=== PATIENT | female | born 1980 | race Caucasian/White ===

== ENCOUNTER 2022-08-13 08:30 | Inpatient (IN) | payer OTHER ==
[2022-08-13] MEDS ORDERED: SODIUM CHLORIDE 0.9% 1,000 ML IV STA (08:32)
--- NOTE | 2022-08-13 08:42 | ED ---
General Adult HPI - General Stated complaint: Seizure Time Seen by Provider: 08/13/22 08:32 Source: family, RN notes reviewed, old records reviewed Limitations: altered mental status - History of Present Illness Initial comments: 41-year-old female who had been in the emergency department waiting with her daughter. While waiting she developed fall on tonic-clonic seizure which was witnessed by nursing initially and by myself. She had urinary incontinence. She did fall but staff did not indicate head trauma. She has a history of seizure disorder and daughter believes that she uses medical marijuana but does not believe she is currently on any medications. History is obtained from the daughter at the onset of seizure. - Related Data Home Medications Medication Instructions Recorded Confirmed No Known Home Medications 08/13/22 08/13/22 Allergies Allergy/AdvReac Type Severity Reaction Status Date / Time diazepam [From Valium] AdvReac seizure Verified 08/13/22 09:51 Review of Systems ROS Statement: Those systems with pertinent positive or pertinent negative responses have been documented in the HPI. ROS Other: All systems not noted in ROS Statement are negative. General Exam General appearance: obtunded, in distress Head exam: Present: atraumatic, normocephalic Eye exam: Present: normal appearance, PERRL Neck exam: Absent: tenderness Respiratory exam: Present: other (Tachypneic with snoring respirations) Cardiovascular Exam: Present: normal rhythm, tachycardia GI/Abdominal exam: Present: soft. Absent: distended, tenderness, guarding Extremities exam: Present: normal inspection, normal capillary refill Neurological exam: Present: other (Localizes to pain). Absent: alert, oriented X3 Skin exam: Present: warm, dry, intact, normal color Course Vital Signs 08/13/22 08/13/22 08:32 09:10 Temperature 97.4 F L Pulse Rate 125 H 94 Respiratory 18 18 Rate Blood Pressure 104/83 106/81 O2 Sat by Pulse 96 100 Oximetry EKG Findings - EKG Results: EKG: interpreted by DARLENE (Sinus rhythm rate of 97, AZ interval 136, QRS duration 76, QTC 403, no ST segment changes, question right ventricular conduction delay) Medical Decision Making - Medical Decision Making Was pt. sent in by a medical professional or institution (, PA, REVOLVING INVENTORY CLERK, urgent care, hospital, or longterm...) When possible be specific @ -No Did you speak to anyone other than the patient for history (EMS, parent, family, police, friend...)? What history was obtained from this source @ -History is obtained from the daughter who is a current patient holding the emergency department initial history was not able to be obtained from the patient secondary to seizure activity and postictal state Did you review nursing and triage notes (agree or disagree)? Why? @ -I reviewed and agree with nursing and triage notes Were old charts reviewed (outside hosp., previous admission, EMS record, old EKG, old radiological studies, urgent care reports/EKG's, longterm records)? Report findings @ -No old charts were reviewed Differential Diagnosis (chest pain, altered mental status, abdominal pain women, abdominal pain men, vaginal bleeding, weakness, fever, dyspnea, syncope, headache, dizziness, GI bleed, back pain, seizure, CVA, palpatations, mental health, musculoskeletal)? @ -Differential Seizure: Recurrent seizure disorder, febrile seizure, alcohol withdrawal, stimulants, meningitis, encephalitis, intercranial hemorrhage, intracranial tumor, stroke, eclampsia, thyrotoxicosis, hypocalcemia, hyponatremia, hypernatremia, hy pomagnesemia, psychogenic, this is not meant to be an all-inclusive list. EKG interpreted by me (3pts min.). @ -As above X-rays interpreted by me (1pt min.). @ -None done CT interpreted by me (1pt min.). @ -CT was interpreted by myself and I agree with the radiologist assessment no acute intracranial abnormality, no fracture or subluxation the cervical spine U/S interpreted by me (1pt. min.). @ -None done What testing was considered but not performed or refused? (CT, X-rays, U/S, labs)? Why? @ -None What meds were considered but not given or refused? Why? @ -I considered antiepileptics however the patient is currently not on any and does not wish to start oral medications she is currently taking cannabis only. Did you discuss the management of the patient with other professionals (professionals i.e. , PA, REVOLVING INVENTORY CLERK, lab, RT, psych nurse, social media sr strategy manager, roastmaster, teacher, armed custom protection officer, case folder)? Give summary @ -No Was smoking cessation discussed for >3mins.? @ -No Was critical care preformed (if so, how long)? @ -Critical care was performed for approximately 35 minutes during the initial seizure and postictal phase Were there social determinants of health that impacted care today? How? (Homelessness, low income, unemployed, alcoholism, drug addiction, transportation, low edu. Level, literacy, decrease access to med. care, senior living, rehab)? @ -U asked the patient currently cannot drive she lives a proximally 45 minutes from this institution and is staying in the emergency department with her daughter who is currently also patient. Was there de-escalation of care discussed even if they declined (Discuss DNR or withdrawal of care, Hospice)? DNR status @ -No What co-morbidities impacted this encounter? (DM, HTN, Smoking, COPD, CAD, Cancer, CVA, ARF, Chemo, Hep., AIDS, mental health diagnosis, sleep apnea, morbid obesity)? @ -None Was patient admitted / discharged? Hospital course, mention meds given and route, prescriptions, significant lab abnormalities, going to OR and other pertinent info. @ -Patient was monitored during her initial seizure. She had approximately 1 minute of full seizure activity with urinary incontinence. She was placed immediately on a monitor and taken to the resuscitation room. She did not require benzodiazepines her antiepileptics. After approximately 20 minutes she regained normal consciousness and normal neurologic function with a normal neuro exam. I did perform head CT both for seizure and for the possibility of head trauma this was negative. Her laboratory testing is consistent with seizure activity mild leukocytosis and a CO2 of 12 consistent with acidosis from seizure activity. Patient monitored closely in the emergency department returns to baseline she does not want to be admitted she states she takes cannabis and has several seizures per month at baseline. She does not drive secondary to seizure disorder. She has good follow-up as an outpatient. Patient wishes to be discharged. Undiagnosed new problem with uncertain prognosis? @ -No Drug Therapy requiring intensive monitoring for toxicity (Heparin, Nitro, Insulin, Cardizem)? @ -No Were any procedures done? @ -No Diagnosis/symptom? @ -Seizure Acute, or Chronic, or Acute on Chronic? @ -Acute on chronic Uncomplicated (without systemic symptoms) or Complicated (systemic symptoms)? @ -Complicated Side effects of treatment? @ -No Exacerbation, Progression, or Severe Exacerbation? @ -Exacerbation of chronic condition Poses a threat to life or bodily function? How? (Chest pain, USA, CA, pneumonia, PE, COPD, DKA, ARF, appy, cholecystitis, CVA, Diverticulitis, Homicidal, Suicidal, threat to staff... and all critical care pts) @ -Progression of seizure, coma, - Lab Data Result diagrams: 08/13/22 08:41 08/13/22 08:41 Lab Results 08/13/22 08/13/22 Range/Units 08:41 08:41 WBC 11.6 H (3.8-10.6) k/uL RBC 4.59 (3.80-5.40) m/uL Hgb 14.9 (11.4-16.0) gm/dL Hct 46.3 H (34.0-46.0) % MCV 100.9 H (80.0-100.0) fL MCH 32.4 (25.0-35.0) pg MCHC 32.1 (31.0-37.0) g/dL RDW 12.3 (11.5-15.5) % Plt Count 318 (150-450) k/uL MPV 7.8 Neutrophils % 40 % Lymphocytes % 50 % Monocytes % 5 % Eosinophils % 1 % Basophils % 1 % Neutrophils # 4.6 (1.3-7.7) k/uL Lymphocytes # 5.8 H (1.0-4.8) k/uL Monocytes # 0.6 (0-1.0) k/uL Eosinophils # 0.1 (0-0.7) k/uL Basophils # 0.1 (0-0.2) k/uL Manual Slide Review Performed Sodium 140 (137-145) mmol/L Potassium 4.2 (3.5-5.1) mmol/L Chloride 104 (98-107) mmol/L Carbon Dioxide 12 L (22-30) mmol/L Anion Gap 24 mmol/L BUN 7 (7-17) mg/dL Creatinine 0.74 (0.52-1.04) mg/dL Est GFR (CKD-EPI)AfAm >90 (>60 ml/min/1.73 sqM) Est GFR (CKD-EPI)NonAf >90 (>60 ml/min/1.73 sqM) Glucose 119 H (74-99) mg/dL Calcium 9.6 (8.4-10.2) mg/dL Magnesium 2.3 (1.6-2.3) mg/dL Total Bilirubin 0.8 (0.2-1.3) mg/dL AST 30 (14-36) U/L ALT 43 H (4-34) U/L Alkaline Phosphatase 48 (38-126) U/L Total Protein 7.9 (6.3-8.2) g/dL Albumin 5.1 H (3.5-5.0) g/dL Critical Care Time Critical Care Time: Yes Total Critical Care Time: 35 Disposition Clinical Impression: Generalized seizure Disposition: HOME SELF-CARE Condition: Fair Instructions (If sedation given, give patient instructions): Seizure/Epilepsy Discharge Instructions & Follow-Up Is patient prescribed a controlled substance at d/c from ED?: No Referrals: None,Stated [Primary Care Provider] - 1-2 days Forms: Who Do I Call?, Community Resources, Personal Wood Carving Lathe Operator, Area PCPs Time of Disposition: 10:10
[2022-08-13 08:54] LABS: Basophils # (A) 0.1 k/uL (0-0.2); Basophils % (A) 1 %; Eosinophils # (A) 0.1 k/uL (0-0.7); Eosinophils % (A) 1 %; HCT 46.3 % (34.0-46.0); HGB 14.9 gm/dL (11.4-16.0); Lymphocytes # (A) 5.8 k/uL (1.0-4.8); Lymphocytes % (A) 50 %; MCH 32.4 pg (25.0-35.0); MCHC 32.1 g/dL (31.0-37.0); MCV 100.9 fL (80.0-100.0); Mean Platelet Volume 7.8; Monocytes # (A) 0.6 k/uL (0-1.0); Monocytes % (A) 5 %; Neutrophils # (A) 4.6 k/uL (1.3-7.7); Neutrophils % (A) 40 %; Platelet Count 318 k/uL (150-450); RBC 4.59 m/uL (3.80-5.40); RDW 12.3 % (11.5-15.5); WBC 11.6 k/uL (3.8-10.6)
[2022-08-13 09:08] LABS: ALT 43 U/L (4-34); AST 30 U/L (14-36); African American GFR (CKD) >90 (>60 ml/min/1.73 sqM); Albumin 5.1 g/dL (3.5-5.0); Alkaline Phosphatase 48 U/L (38-126); Anion Gap 24 mmol/L; Blood Urea Nitrogen 7 mg/dL (7-17); Calcium 9.6 mg/dL (8.4-10.2); Carbon Dioxide 12 mmol/L (22-30); Chloride 104 mmol/L (98-107); Glucose 119 mg/dL (74-99); Magnesium 2.3 mg/dL (1.6-2.3); Non-African American GFR(CKD) >90 (>60 ml/min/1.73 sqM); Potassium 4.2 mmol/L (3.5-5.1); Sodium 140 mmol/L (137-145); Total Bilirubin 0.8 mg/dL (0.2-1.3); Total Protein 7.9 g/dL (6.3-8.2)
--- NOTE | 2022-08-13 09:46 | CT ---
EXAMINATION TYPE: CT brain val gottlieb DATE OF EXAM: 08/13/2022 COMPARISON: NONE HISTORY: Seizure. Fall injury with neck pain. CT DLP: 1356.1 mGycm. Automated Exposure Control for Dose Reduction was Utilized. TECHNIQUE: CT scan of the head and cervical spine are performed without contrast. FINDINGS: There is no acute intracranial hemorrhage, mass effect, or midline shift identified. The ventricles and sulci are within normal limits in size. Pickett-white matter differentiation is preserve d. The calvarium is intact. The globes are intact and the visualized sinuses are clear. Cervical spine is visualized in its entirety from C1 through upper thoracic levels and demonstrates l oss of normal cervical curvature without evidence of acute fracture or dislocation. Prevertebral sof t tissue appears within normal limits. The C1-C2 articulation is within normal limits on the coronal images. Vertebral body heights are preserved. There is mild disc space narrowing with moderate ante rior spurring at C6-C7 level. Posterior spur disc complex effaces the anterior thecal sac at this lev el on sagittal and axial images. Axial images show normal-appearing thyroid gland. Lung apices show n o pneumothorax. IMPRESSION: 1. There is no acute fracture or dislocation evident in the cervical spine. 2. No acute intracranial hemorrhage or midline shift is seen.
[2022-08-13] MEDS ORDERED: LORazepam 2 MG/ML INJ IV STA (10:25)
[2022-08-13] MEDS ORDERED: levETIRAcetam IV 1,500 MG in SALINE 1 100ML.BAG IVPB STA (10:33)
[2022-08-13] MEDS ORDERED: NALOXONE 0.4 MG/ML 1 ML VIAL IV PRN (10:33)
[2022-08-13] MEDS ORDERED: ACETAMINOPHEN TAB 325 MG TAB PO PRN (10:33)
[2022-08-13] MEDS ORDERED: SODIUM CHLORIDE 0.9% 1,000 ML IV SCH (10:45)
--- NOTE | 2022-08-13 11:18 | P.HPIM ---
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 Magnesium 2.3. EKG showed normal sinus rhythm at [address] T changes CT of the brain and cervical spine, no acute fracture or dislocation of the cervical spine and no acute intracranial hemorrhage or midline shift Patient was about to be discharged again when she had another episode of tonic- clonic seizure so decision was to admit her Keppra was started on patient and she was admitted with neurology consult Review of Systems ROS unobtainable: due to mental status Past Medical History Past Medical History: Unable to Obtain History of Any Multi-Drug Resistant Organisms: Unobtainable Past Surgical History: Unable to Obtain Past Psychological History: Unable to Obtain Smoking Status: Unknown if ever smoked Past Alcohol Use History: Unable to Obtain Past Drug Use History: Unable to Obtain Medications and Allergies Home Medications Medication Instructions Recorded Confirmed Type No Known Home Medications 08/13/22 08/13/22 History Allergies Allergy/AdvReac Type Severity Reaction Status Date / Time diazepam [From Valium] AdvReac seizure Verified 08/13/22 09:51 Physical Exam Vitals: Vital Signs Temp Pulse Resp BP Pulse Ox 08/13/22 09:10 94 18 106/81 100 08/13/22 08:32 97.4 F L 125 H 18 104/83 96 Intake and Output 08/12/22 08/13/22 08/13/22 22:59 06:59 14:59 Other: Weight 58.967 kg GENERAL: The patient is confused currently (mostly post ictal) HEENT: Pupils are round and equally reacting to light. EOMI. No scleral icterus. No conjunctival pallor. Normocephalic, atraumatic. No pharyngeal erythema. No thyromegaly. CARDIOVASCULAR: S1 and S2 present. No murmurs, rubs, or gallops. PULMONARY: Chest is clear to auscultation, no wheezing or crackles. ABDOMEN: Soft, nontender, nondistended, normoactive bowel sounds. No palpable organomegaly. MUSCULOSKELETAL: No joint swelling or deformity. EXTREMITIES: No cyanosis, clubbing, or pedal edema. -NEUROLOGICAL: Gross neurological examination did not reveal any focal deficits. Exam is limited by patient's clinical condition SKIN: No rashes. no petechiae. Results CBC & Chem 7: 08/13/22 08:41 08/13/22 08:41 Labs: Abnormal Lab Results - Last 24 Hours (Table) 08/13/22 08/13/22 Range/Units 08:41 08:41 WBC 11.6 H (3.8-10.6) k/uL Hct 46.3 H (34.0-46.0) % MCV 100.9 H (80.0-100.0) fL Lymphocytes # 5.8 H (1.0-4.8) k/uL Carbon Dioxide 12 L (22-30) mmol/L Glucose 119 H (74-99) mg/dL ALT 43 H (4-34) U/L Albumin 5.1 H (3.5-5.0) g/dL Assessment and Plan Assessment: Recurrent tonic-clonic seizure, new onset Altered mental status, most likely secondary to post ictal effect Leukocytosis, most likely reactive, no evidence of infection Plan: Continue with Keppra Continue with the neuro check Neurology consult Urine drug screen Continue gentle hydration and keep monitoring WBC Labs and medication were reviewed.. Monitor labs and vitals. DVT and GI prophylaxis. Further recommendations as per clinical course of the patient DVT prophylaxis: Subcutaneous heparin GI Prophylaxis: Pepcid Prognosis is guarded
[2022-08-13 11:59] LABS: Amphetamine Screen,Urine Not Detected (NotDetected); Barbiturate Screen,Urine Not Detected (NotDetected); Benzodiazepines Screen,Urine Not Detected (NotDetected); Cocaine Screen,Urine Not Detected (NotDetected); Methadone Screen, Urine Not Detected (NotDetected); Opiate Screen,Urine Not Detected (NotDetected); Oxycodone Screen, Urine Not Detected (NotDetected); Phencyclidine Screen,Urine Not Detected (NotDetected); Tricyclic Antidepressant,Urine Not Detected (NotDetected); Urn Cannabinoid Scrn Detected (NotDetected)
[2022-08-13 12:04] LABS: African American GFR (CKD) >90 (>60 ml/min/1.73 sqM); Anion Gap 7 mmol/L; Blood Urea Nitrogen 8 mg/dL (7-17); Calcium 8.4 mg/dL (8.4-10.2); Carbon Dioxide 21 mmol/L (22-30); Chloride 110 mmol/L (98-107); Glucose 92 mg/dL (74-99); Non-African American GFR(CKD) >90 (>60 ml/min/1.73 sqM); Potassium 4.2 mmol/L (3.5-5.1); Sodium 138 mmol/L (137-145)
[2022-08-13 12:12] LABS: HCG,Qualitative Serum Not Detected
[2022-08-13 12:35] VITALS: BP 98/59; PULSE 89; RESP 18; TEMP 97.6
[2022-08-13] MEDS ORDERED: LACOSAMIDE 50 MG TABLET PO SCH (13:15)
--- NOTE | 2022-08-13 13:22 | P.CNNES ---
History of Present Illness Consult date: 08/13/22 Requesting physician: Ward Fleming Reason for Consult: seizure History of Present Illness: This is a 41-year-old woman with history of seizure who came to the hospital to visit her daughter and while visiting her daughter she had that seizure. Some of the history is obtained from the nursing staff and it seems to the patient while visiting her daughter had the 2 seizure-like activity witnessed by the medical staff and she was shaking all extremities the head was drooped down eyes were closed and the episodes will last less than a minute and she was post ictal for a short period of time. One of the episode she had urinary incontinence. Patient is not on any antiepileptic drugs. She stated that she is on marijuana and that helps with the seizures. She tried multiple antiseizure medication in the past without benefit and according to her she tried Keppra, Depakote, Lamictal, Dilantin. She is very hesitant starting on any oral medication and feels the marijuana does a good job but states her seizure happens once every 3 months. Denies follow-up with a neurologist [place]. She cannot tell me the neurologist as he she seen in the past. She stated that she had that had seizures since 1997. Some of the workup during this hospital visit consisted of: Temperature is 97.4 Fahrenheit. White blood cells 11.6. Glucose is 119, AST is 30 about ALT is 43. HCG qual is not detected Toxic screen is positive for marijuana. The rest is nondetected. CT of the head is reported as there is no acute intracranial hemorrhage of midline shift is seen. CT cervical spine was reported as there is no acute fracture or dislocation evident in the cervical spine. Review of Systems Review of system: The 12 point system was reviewed and apparent positive and negative per HPI. Past Medical History Past Medical History: Unable to Obtain History of Any Multi-Drug Resistant Organisms: Unobtainable Past Surgical History: Unable to Obtain Past Psychological History: Unable to Obtain Smoking Status: Unknown if ever smoked Past Alcohol Use History: Unable to Obtain Past Drug Use History: Unable to Obtain Medications and Allergies Home Medications Medication Instructions Recorded Confirmed Type No Known Home Medications 08/13/22 08/13/22 History Allergies Allergy/AdvReac Type Severity Reaction Status Date / Time diazepam [From Valium] AdvReac seizure Verified 08/13/22 09:51 Physical Examination - Vital Signs Vital Signs: Vital Signs Temp Pulse Resp BP Pulse Ox 08/13/22 12:34 97.6 F 89 18 98/59 98 08/13/22 11:38 78 16 95/61 98 08/13/22 11:03 89 18 100/67 96 08/13/22 10:24 90 20 109/60 100 08/13/22 09:10 94 18 106/81 100 08/13/22 08:32 97.4 F L 125 H 18 104/83 96 Intake and Output 08/12/22 08/13/22 08/13/22 22:59 06:59 14:59 Output Total 5 Balance -5 Output: Urine 5 Straight 5 Other: Weight 58.967 kg GENERAL: The patient is lying in bed and is not in acute distress. CHEST: The heart rate is regular rate rhythm. No murmurs to auscultation. LUNG: Clear to auscultation bilaterally no wheezing noted throughout. Not labored breathing. ABDOMEN/GI: Bowel sounds present in all 4 quadrants. No tenderness to palpation throughout. NEUROLOGICAL: Higher mental function: The patient is awake, alert, oriented to self, place and time. Patient is following commands. No aphasia and no neglect. Cranial nerves: The pupils are round, equal and reactive to light and accommodation. Visual baxter are full to confrontation throughout. Extraocular movement is intact no nystagmus is noted. Facial sensation is normal to touch throughout. The facial strength is normal throughout. Hearing is normal bilaterally to hand rub. Tongue is midline and moved [id number] without any difficulty. No dysarthria is noted. Shoulder shrug is normal bilaterally. Motor: The strength is 5 over 5 throughout. Normal tone and bulk. Cerebellum: Normal finger to nose bilaterally. Sensation: Sensation is normal to touch throughout. Reflexes (right/left):2+ throughout. Plantars are downgoing bilaterally. Results - Laboratory Findings CBC and BMP: 08/13/22 08:41 08/13/22 10:52 Abnormal Lab Findings: Abnormal Labs 08/13/22 08/13/22 08/13/22 08:41 08:41 10:52 WBC 11.6 H Hct 46.3 H MCV 100.9 H Lymphocytes # 5.8 H Chloride Carbon Dioxide 12 L Glucose 119 H ALT 43 H Albumin 5.1 H U Marijuana (THC) Screen Detected H 08/13/22 10:52 WBC Hct MCV Lymphocytes # Chloride 110 H Carbon Dioxide 21 L Glucose ALT Albumin U Marijuana (THC) Screen Assessment and Plan Assessment: This is a 41 y/o woman with history of seizure since 1997 who states having a seizure once every 3 months but is only on marijuana. She stated she has tried multiple antiseizure medication without benefit? Today had two witnessed seizure-like activity by ED nursing staff while visit her daughter. Break-thru seizure: Not on antiseizure medication History of seizure since 1997 Marijuana use Plan: In the ED the patient was given Keppra 1500 mg once and Ativan 2 mg once. Initially she declined to be on any oral anti-seizure medication since she stated she does not want any pharmaceutical drugs that will knock her out or make her worse. But then afterwards she stated that she'll try Vimpat 50mg bid. I ordered a routine EEG. Recommend MRI of the brain with and without seizure protocol as an outpatient Seizure precaution seizure pads Recommend the patient to follow-up with a neurologist as an outpatient within 1- 2 weeks. Patient was notified that per [place] DMV because of the seizure, to avoid driving for 6 month until Z seizure-free and she stated that she does not drive. She was also notified to avoid heights, avoid heavy machinery or swim unassisted. We'll defer the rest of the medical management the primary team The plan was discussed with the patient and her nurse Thank you for the consultation Time with Patient: Greater than 30
[2022-08-13] MEDS ORDERED: FAMOTIDINE 20 MG/2 ML VIAL IV SCH (21:00)
[2022-08-13] MEDS ORDERED: HEPARIN SODIUM,PORCINE/PF 5,000 UNIT/0.5 ML SYRINGE SQ SCH (21:00)
--- NOTE | 2022-08-13 22:06 | EEG ---
ELECTROENCEPHALOGRAM REPORT CLINICAL HISTORY: This is a 41-year-old woman with history of seizure, who had a witnessed seizure-like activity in the ED. The video EEG is obtained to evaluate for seizure and epileptiform activity. RELEVANT MEDICATIONS: Ativan and Keppra. EEG TYPE: A routine 21-channel EEG is performed with video using the 10/20 electrode placement system. DESCRIPTION: Wakefulness and drowsiness are obtained. During awake state, the posterior-dominant rhythm consists of [id number] voltage of 11.5 to 12 Hz activity that is well modulated and well sustained. There is no physiological stage II sleep architecture. There is no focal slowing. INTERICTAL AND ICTAL: None. ACTIVATION PROCEDURE: Photic stimulation and hyperventilation are not performed. CLINICAL INTERPRETATION: This is a normal routine EEG. There is no focal slowing, epileptiform discharges, or seizure during this EEG. Normal routine EEG does not rule out underlying epilepsy. Consider prolonged ambulatory EEG or epilepsy monitoring unit to capture her episodes. Clinical correlation is recommended. HANY / DOROTHYN: [id number] /
--- NOTE | 2022-08-13 22:49 | P.DS ---
Providers Date of admission: 08/13/22 10:33 Attending physician: Quentin Gonzalez MD Consults: 08/13/22 10:33 Consult Physician Routine Consulting Provider: Henry Zhao Consult Reason/Comments: Seizure Do you want consulting provider notified?: Yes Primary care physician: Stated None Hospital Course: Please note patient was not discharged but left AMA patient left AMA before I have a chance to see her or talk to her. Patient Condition at Discharge: Fair Plan - Discharge Summary New Discharge Prescriptions: No Action No Known Home Medications Discharge Medication List No Known Home Medications 08/13/22 [History] Follow up Appointment(s)/Referral(s): None,Stated [Primary Care Provider] - 1-2 days Patient Instructions/Handouts: Seizure/Epilepsy Discharge Instructions & Follow-Up Discharge/Stand Alone Forms: Who Do I Call?, Community Resources, Personal Glass Bender, Area PCPs Discharge Disposition: Left Against Medical Advice
== END 2022-08-13 15:48 | disposition left against medical advice (07) | DRG 53 ==
LOC: EC 08:30 → 5NMEDONC 10:33 → 6NMEDSUR 12:26
PROVIDERS: ADMIT Internal Medicine; ATTEND Internal Medicine
DX: G40.409 Other generalized epilepsy and epileptic syndromes, not intractable, without status epilepticus (principal); E87.0 Hyperosmolality and hypernatremia; R32 Unspecified urinary incontinence; Z53.29 Procedure and treatment not carried out because of patient's decision for other reasons; Z88.8 Allergy status to other drugs, medicaments and biological substances
CPT/HCPCS: 36415; 70450; 72125; 80048; 80053; 80306; 83735; 84703; 85025; 93005; 95819; 99285